=== PATIENT | male | born 1970 | race African-American/Black ===

== ENCOUNTER 2023-04-14 13:00 | Outpatient (CLI) | payer OTHER ==
[2023-04-14 14:26] LABS: #Basophils 0.1 10x3/uL (0.0-0.2); #Eosinphils 1.1 10x3/uL (0.0-0.5); #Monocytes 0.4 10x3/uL (0.0-1.1); #Neutrophils 2.1 10x3/uL (1.5-8.4); %Basophils 1.3 % (0.0-2.0); %Eosinophils 18.7 % (0.0-6.0); %Lymphocytes 38.4 % (18.0-47.0); %Monocytes 7.2 % (0.0-10.0); %Neutrophils 34.2 % (40.0-75.0); Hematocrit 39.3 % (38.8-50.0); Hemoglobin 12.8 g/dL (13.5-17.5); Mean Corpuscular HGB CONC 32.6 g/dL (32.0-36.0); Mean Corpuscular Hemoglobin 27.6 pg (27.0-33.0); Mean Corpuscular Volume 84.9 fl (81.2-95.1); Mean Platelet Volume 9.2 fl (7.4-10.4); Platelet Count 366 10x3/uL (150-450); RBC Distribution Width 15.6 % (11.5-14.5); Red Blood Cell (RBC) Count 4.63 10x6/uL (4.32-5.72); White Blood Cell (WBC) Count 6.1 10x3/uL (3.5-10.5)
[2023-04-14 14:52] LABS: INR-International Normal Ratio 0.9; Prothrombin Time 9.9 sec (9.5-12.1)
[2023-04-14 14:53] LABS: Anion Gap 15 mmol/L (10-20); BUN (Urea Nitrogen) 9 mg/dL (8.4-25.7); Calc. Creatinine Clearance 0 mL/min (70-130); Calcium 9.6 mg/dL (7.8-10.44); Carbon Dioxide 25 mmol/L (22-29); Chloride 105 mmol/L (98-107); Estimated GFR 106; Glucose 82 mg/dL (70-105); Potassium 4.9 mmol/L (3.5-5.1); Sodium 140 mmol/L (136-145)
== END 2023-04-14 13:01 | disposition home or self-care (01) ==
LOC: LABBT 13:00
PROVIDERS: ATTEND Orthopaedic Surgery
DX: Z01.818 Encounter for other preprocedural examination (principal); M16.11 Unilateral primary osteoarthritis, right hip
CPT/HCPCS: 80048; 85025; 85610; 87081; 93005; 93010